=== PATIENT | female | born 1955 | race African-American/Black ===

== ENCOUNTER 2016-12-09 11:07 | Emergency (ER) | payer OTHER, MEDICAID ==
[~2016-12-09] VITALS: Ht 162.6 cm; Wt 96.2 kg
[2016-12-09 11:48] VITALS: BP 137/85
== END 2016-12-09 12:15 | disposition home or self-care (01) ==
LOC: ER 11:07
DX: R04.0 Epistaxis (principal); E78.5 Hyperlipidemia, unspecified; I10 Essential (primary) hypertension; F17.210 Nicotine dependence, cigarettes, uncomplicated; Z88.6 Allergy status to analgesic agent
CPT/HCPCS: 30901

== ENCOUNTER 2016-12-11 11:33 | Emergency (ER) | payer OTHER, MEDICAID ==
[~2016-12-11] VITALS: Ht 165.1 cm; Wt 99.8 kg
[2016-12-11 12:03] VITALS: BP 148/88
== END 2016-12-11 12:11 | disposition home or self-care (01) ==
LOC: ER 11:33
DX: T17.1XXD Foreign body in nostril, subsequent encounter (principal); Z48.01 Encounter for change or removal of surgical wound dressing; I10 Essential (primary) hypertension; F17.210 Nicotine dependence, cigarettes, uncomplicated; E78.5 Hyperlipidemia, unspecified; Z88.6 Allergy status to analgesic agent

== ENCOUNTER 2018-06-07 12:38 | Emergency (ER) | payer OTHER, MEDICAID ==
[~2018-06-07] VITALS: Ht 165.1 cm; Wt 97.1 kg
[2018-06-07 12:50] VITALS: BP 174/94
[2018-06-07] MEDS ORDERED: LIDOCAINE 1% (LOCAL ANESTH.) PF 5ml SDV ID ONE (15:30)
[2018-06-07] MEDS ORDERED: BACITRACIN TOP OINT 1 UD PKG TOP ONE (15:30)
== END 2018-06-07 16:57 | disposition home or self-care (01) ==
LOC: ER 12:38
DX: S61.012A Laceration without foreign body of left thumb without damage to nail, initial encounter (principal); F17.210 Nicotine dependence, cigarettes, uncomplicated; E11.9 Type 2 diabetes mellitus without complications; E78.5 Hyperlipidemia, unspecified; I10 Essential (primary) hypertension; Z88.5 Allergy status to narcotic agent; W45.8XXA Other foreign body or object entering through skin, initial encounter; Y93.89 Activity, other specified; Y99.8 Other external cause status; Y92.89 Other specified places as the place of occurrence of the external cause
CPT/HCPCS: 12001

== ENCOUNTER 2019-05-01 18:10 | Emergency (ER) | payer OTHER, MEDICAID ==
[~2019-05-01] VITALS: Ht 165.1 cm; Wt 93.4 kg
[2019-05-01] MEDS ORDERED: DexAMETHasone SOD PHOS 10MG/1ML VIAL INJ IM ONE (20:30)
[2019-05-01] MEDS ORDERED: ACETAMINOPHEN/CODEINE#3 (300/30mg) TAB PO ONE (20:30)
[2019-05-01 21:21] VITALS: BP 164/81
== END 2019-05-01 21:40 | disposition home or self-care (01) ==
LOC: ER 18:10
DX: J20.9 Acute bronchitis, unspecified (principal); J06.9 Acute upper respiratory infection, unspecified; E11.9 Type 2 diabetes mellitus without complications; E78.5 Hyperlipidemia, unspecified; I10 Essential (primary) hypertension; Z88.5 Allergy status to narcotic agent
CPT/HCPCS: 71046; 96372; 99283; J1100

== ENCOUNTER 2021-03-24 13:03 | Emergency (ER) | payer OTHER, MEDICAID ==
[~2021-03-24] VITALS: Ht 167.6 cm; Wt 96.6 kg
[2021-03-24 13:52] LABS: Basophils # (auto) 0.1 10 ^3/uL (0-0.2); Basophils % (auto) 1.3 % (0.0-2.0); Eosinophils # (auto) 0.1 10 ^3/uL (0-0.8); Eosinophils % (auto) 1.8 % (0.0-7.0); Hematocrit 42.6 % (36.0-46.0); Hemoglobin 14.2 g/dL (12.2-16.2); Lymphocytes # (auto) 2.1 10 ^3/uL (0.4-5.4); Lymphocytes % (auto) 38.6 % (10.0-50.0); Mean Corpuscular Hemoglobin 28.9 pg (28.0-32.0); Mean Corpuscular Hgb Conc. 33.3 g/dL (32.0-36.0); Mean Corpuscular Volume 86.8 fL (80.0-100.0); Monocytes # (auto) 0.7 10 ^3/uL (0-1.3); Monocytes % (auto) 13.2 % (0.0-12.0); Neutrophils # (auto) 2.5 10 ^3/uL (1.6-8.6); Neutrophils % (auto) 45.1 % (37.0-80.0); Nucleated Red Blood Cells % 0.1 %; Red Blood Cells 4.91 10^6/uL (4.0-5.20); Red Cell Distribution Width 14.2 % (11.8-14.3); White Blood Cell 5.4 10^3/uL (4.4-10.8)
[2021-03-24 14:10] LABS: Albumin 3.5 g/dL (3.4-5.0); Anion Gap 4 (5-15); BUN/Creatinine Ratio 17.9; Blood Urea Nitrogen 19 mg/dL (7-18); Calcium 10.2 mg/dL (8.5-10.1); Carbon Dioxide 27 mmol/L (21-32); Chloride 108 mmol/L (98-107); GFR African American 67 mL/min; GFR Non-African American 55 mL/min; Glucose 80 mg/dL (74-106); Magnesium 2.4 mg/dL (1.6-2.6); Potassium 3.7 mmol/L (3.5-5.1); Sodium 139 mmol/L (136-145)
[2021-03-24 14:21] LABS: Alanine Aminotransferase 29 U/L (13-56); Alkaline Phosphatase 76 U/L (45-117); Aspartate Aminotransferase 14 U/L (15-37); Bilirubin, Total 0.5 mg/dL (0.2-1.0); Total Protein 7.5 g/dL (6.4-8.2)
[2021-03-24 14:44] LABS: Urine Bacteria FEW /hpf (None Seen); Urine Blood Negative /uL (Negative); Urine Specific Gravity 1.024 (1.001-1.035); Urine WBC 33 /hpf (0 - 5)
[2021-03-24] MEDS ORDERED: cefTRIAXone 1GM/50ML D5W 50 ML IV ONE (18:00)
[2021-03-24] MEDS ORDERED: cefTRIAXone SOD 1,000 MG VL IM ONE (18:30)
[2021-03-24 19:02] VITALS: BP 114/76
== END 2021-03-24 19:03 | disposition home or self-care (01) ==
LOC: ER 13:03
DX: N39.0 Urinary tract infection, site not specified (principal); M79.10 Myalgia, unspecified site; J45.909 Unspecified asthma, uncomplicated; E11.9 Type 2 diabetes mellitus without complications; E78.5 Hyperlipidemia, unspecified; I10 Essential (primary) hypertension; Z87.891 Personal history of nicotine dependence; Z88.5 Allergy status to narcotic agent
CPT/HCPCS: 36415; 71046; 80053; 81001; 83735; 84484; 85025; 87086; 96372; 99284; J0696; 93005